=== PATIENT | female | born 1965 | race Caucasian/White ===

== ENCOUNTER 2017-07-12 18:36 | Inpatient (IN) | payer MEDICARE, OTHER ==
[~2017-07-12] VITALS: Ht 154.9 cm; Wt 99.8 kg
[2017-07-12] MEDS ORDERED: HYDR200T PO (18:53)
[2017-07-12] MEDS ORDERED: BUDE10.22 IH (18:53)
[2017-07-12] MEDS ORDERED: DOCU-25 PO (18:53)
[2017-07-12] MEDS ORDERED: LAMO25TA PO (18:53)
[2017-07-12] MEDS ORDERED: FLUT1BLS IH (18:53)
[2017-07-12] MEDS ORDERED: CLON2TAB4 PO (18:53)
[2017-07-12] MEDS ORDERED: GABA-534 PO ×2 (18:53)
[2017-07-12] MEDS ORDERED: LORC10TA PO (18:53)
[2017-07-12] MEDS ORDERED: TRAZ300T2 PO (18:53)
[2017-07-12] MEDS ORDERED: CHOL100044 PO (18:53)
[2017-07-12] MEDS ORDERED: QUET300T2 PO (18:53)
[2017-07-12] MEDS ORDERED: MAGNESIUM HYDROXIDE 30 ML UDC PO PRN (19:00)
[2017-07-12] MEDS ORDERED: MAG HYDROX/AL HYDROX/SIMETH 30 ML UDC PO PRN (19:00)
--- NOTE | 2017-07-12 19:00 | NUR ---
GPS/RN NOTE: ADMITTED DIRECTLY FROM [facility] ACCOMPANIED BY 2 MALE PARAMEDICS, CAME TO THE UNIT AROUND 1845. PATIENT ADMITTED ON 5150 HOLD FOR GD. PATIENT WAS PLACED COMFORTABLY IN BED, SHOWS NO S/S OF ANY DISTRESS. RESPIRATION EVEN, BREATHING PATTERN NON-LABORED, TOTAL BODY ASSESSMENT DONE, SKIN WARM DRY AND INTACT. PATIENT IS DEPRESSED, ANXIOUS, APPROPRIATE, THOUGHT PROCESS INTACT, COOPERATIVE, CALM. RESPONDS WELL TO QUESTIONS WHEN ENGAGED. PATIENT IS CALM AND OBEYS INSTRUCTIONS. PER HOLD PATIENT WAS VERY PARANOID AND DELUSIONAL, SEEING TURTLES, THINKING PEOPLE ARE AFTER HER, FOLLOWING HER, THINKS MEDS ARE POISON. SHE NON-COMPLIANT WITH MEDS. SHE IS NOT SLEEPING FOR DAYS. PEOPLE ARE GOING TO BREAK INTO HER PLACE. BELONGINGS WERE INVENTORIED AND CHECKED FOR CONTRABAND. VALUABLES PUT TO SAFE. PATIENT IS UNDER THE PSYCHIATRIC CARE OF DR. GREEN AND UNDER THE MEDICAL CARE OF JAVAN HO. PATIENT'S BED LOCKED AND PLACED ON LOWEST POSITION. MED RECON DONE, MRSA SCREEN DONE. LORNE, PATIENT'S MOTHER WAS NOTIFIED ABOUT HER ADMISSION TO THE UNIT. WILL CONTINUE TO MONITOR Q 15 MINS. TO MAINTAIN SAFETY.
[2017-07-12 20:00] VITALS: BP 132/81
[2017-07-12] MEDS: ACETAMINOPHEN 325 MG TABLET PO PRN (20:15)
--- NOTE | 2017-07-12 20:16 | NUR ---
GPS/RN NOTE: C/O HEADACHE, 3/10 ON PAIN SCALE, TYLENOL 650 MG TAB PO GIVEN.
--- NOTE | 2017-07-12 20:24 | NUR ---
GPS/RN NOTE: PAGED LISA PARHAM FOR MED RECONCILIATION
[2017-07-12] MEDS: GABAPENTIN 300 MG CAPSULE PO SCH (21:47)
[2017-07-12] MEDS: clonazePAM 0.5 MG TABLET PO PRN (21:47)
[2017-07-13 07:53] LABS: BILIRUBIN,TOTAL 0.5 mg/dL (0.2-1.0); CALCIUM, SERUM 9.1 mg/dL (8.5-10.1); CREATININE 1.1 mg/dL (0.6-1.3); POTASSIUM 3.7 mmol/L (3.5-5.1); TOTAL PROTEIN, SERUM 7.6 g/dL (6.4-8.2)
[2017-07-13 08:00] VITALS: BP 117/83
[2017-07-13] MEDS: DOCUSATE SODIUM 100 MG CAPSULE PO PRN (08:32)
[2017-07-13] MEDS: LamoTRIgine 25 MG TABLET PO SCH (08:32)
[2017-07-13] MEDS: GABAPENTIN 300 MG CAPSULE PO SCH ×2 (08:32→21:38)
[2017-07-13] MEDS: HYDROXYCHLOROQUINE 200 MG TABLET PO SCH ×2 (08:32→16:25)
[2017-07-13] MEDS: CHOLECALCIFEROL 1,000 UNIT TABLET (VIT D3) PO SCH (08:32)
[2017-07-13] MEDS: FLUTICASONE/VILANTEROL 1 EACH BLST.W.DEV IH SCH (10:55)
[2017-07-13] MEDS: ACETAMINOPHEN 325 MG TABLET PO PRN (11:14)
[2017-07-13 16:00] VITALS: BP 109/73
[2017-07-13 20:00] VITALS: BP 124/82
[2017-07-13] MEDS ORDERED: TRAZODONE 50 MG TABLET ONE (21:44)
[2017-07-13] MEDS ORDERED: QUETIAPINE FUMARATE 100 MG TABLET ONE ×2 (21:45→21:52)
[2017-07-13] MEDS: QUETIAPINE FUMARATE 100 MG TABLET PO SCH (21:52)
[2017-07-13] MEDS ORDERED: TRAZODONE 50 MG TABLET PO SCH (22:00)
[2017-07-14] MEDS: clonazePAM 0.5 MG TABLET PO PRN ×4 (00:17→23:05)
[2017-07-14 08:00] VITALS: BP 100/60
[2017-07-14] MEDS: GABAPENTIN 300 MG CAPSULE PO SCH ×2 (08:49→21:26)
[2017-07-14] MEDS: LamoTRIgine 25 MG TABLET PO SCH (08:49)
[2017-07-14] MEDS: HYDROXYCHLOROQUINE 200 MG TABLET PO SCH ×2 (08:49→16:58)
[2017-07-14] MEDS: CHOLECALCIFEROL 1,000 UNIT TABLET (VIT D3) PO SCH (08:50)
[2017-07-14] MEDS: FLUTICASONE/VILANTEROL 1 EACH BLST.W.DEV IH SCH (08:54)
[2017-07-14] MEDS: QUETIAPINE FUMARATE 100 MG TABLET PO SCH ×2 (08:54→16:59)
[2017-07-14 16:17] VITALS: BP 118/80
--- NOTE | 2017-07-14 18:02 | NUR ---
GPS RN NOTES/ ADMINISTERED KLONOPIN 0.5 MG PO PRN FOR ANXIETY, PARANOIA, PER PATIENT REQUEST, V/S TAKEN BP-118/80, P-84, CONTINUED MONITORING.
[2017-07-14 20:32] VITALS: BP 122/82
[2017-07-14] MEDS: TRAZODONE 50 MG TABLET PO SCH (21:26)
--- NOTE | 2017-07-14 23:05 | NUR ---
GPS/RN NOTE: PATIENT UNABLE TO SLEEP, KLONOPIN 0.5 MG TAB PO GIVEN.
[2017-07-15 08:00] VITALS: BP 100/65
[2017-07-15] MEDS: GABAPENTIN 300 MG CAPSULE PO SCH ×2 (08:40→21:24)
[2017-07-15] MEDS: LamoTRIgine 25 MG TABLET PO SCH (08:40)
[2017-07-15] MEDS: HYDROXYCHLOROQUINE 200 MG TABLET PO SCH ×2 (08:41→16:39)
[2017-07-15] MEDS: CHOLECALCIFEROL 1,000 UNIT TABLET (VIT D3) PO SCH (08:41)
[2017-07-15] MEDS: QUETIAPINE FUMARATE 100 MG TABLET PO SCH ×2 (08:41→16:39)
[2017-07-15] MEDS: FLUTICASONE/VILANTEROL 1 EACH BLST.W.DEV IH SCH (08:42)
[2017-07-15] MEDS: clonazePAM 0.5 MG TABLET PO PRN ×2 (12:59→20:09)
--- NOTE | 2017-07-15 13:02 | NUR ---
AUTO DEALER-NOTES PATIENT REQUESTING FOR KLONOPIN STATED" I NEED FOR MY ANXIETY". KLONOPIN 0.5MG P.O GIVEN PRN ORDER. WILL CONT. MONITORING FOR SAFETY AND BEHAVIOR.
--- NOTE | 2017-07-15 14:00 | NUR ---
CERTIFIED MASSAGE THERAPIST-NOTES PATIENT WATCHING TV IN THE DAY ROOM,CALM,NO ACUTE DISTRESS NOTED.
--- NOTE | 2017-07-15 15:07 | NUR ---
Initial discharge plan: Pt. lives alone at [address] [place] [id number] and wants to return home as soon as possible. SW will follow up with MD and will help form safe and proper discharge.
[2017-07-15 16:00] VITALS: BP 114/69
--- NOTE | 2017-07-15 19:30 | NUR ---
GPS RN NOTE, RECEIVED PATIENT AWAKE AND IN BED, NO S/S OR COMPLAINTS OF PAIN AT THIS TIME. PATIENT IS DISPLAYING NO S/S OF APPARENT DISTRESS AT THIS TIME. PATIENT BREATHING IS UNLABORED WITH EQUAL RISE AND FALL OF THE CHEST. PATIENT IS ALERT AND ORIENTED X 3 ON ROOM AIR WITH A SPO2 98%. PATIENT COMPLAINT WITH MEDICATION, ANXIOUS, COOPERATIVE, HYPERVERBAL, AND NEEDS REORIENTATION. PATIENT DENIES SUICIDE AND HOMICIDAL IDEATIONS AT THIS TIME. PATIENT ASSISTED WITH TURNING AND REPOSITIONING Q2HR AND PRN FOR COMFORT AND CIRCULATION. PATIENT HAS NO NEEDS AT THIS TIME. PATIENT EDUCATED ON THE USE OF THE CALL MALLORY. PATIENT BED SIDE RAILS UP X2 FOR SAFETY, BED IS LOCKED AND LOW WILL CONTINUE TO MONITOR AND MAINTAIN SAFETY.
--- NOTE | 2017-07-15 20:09 | NUR ---
GPS RN NOTE, PATIENT HAS A COMPLAINT OF FEELING ANXIOUS AND WOULD LIKE MEDICATION TO HELP CALM HER DOWN. PATIENT VITAL SIGNS ARE STABLE. GAVE KLONOPIN 0.5MG PO Q4HR PRN ORDERED. WILL REASSESS FOR ANXIETY AND I WILL CONTINUE TO MONITOR THIS PATIENT.
[2017-07-15 21:03] VITALS: BP 118/82
[2017-07-15] MEDS: TRAZODONE 50 MG TABLET PO SCH (21:24)
[2017-07-15] MEDS: TEMAZEPAM 7.5 MG CAPSULE PO PRN (22:36)
--- NOTE | 2017-07-15 22:36 | NUR ---
GPS RN NOTE, PATIENT HAS A COMPLAINT OF NOT BEING ABLE TO SLEEP AND WOULD LIKE A SLEEPING AID AT THIS TIME. PATIENT VITAL SIGNS ARE STABLE. GAVE RESTORIL 7.5 MG PO HS ORDERED. WILL REASSESS FOR INSOMNIA AND I WILL CONTINUE TO MONITOR THIS PATIENT.
[2017-07-16 08:00] VITALS: BP 109/75
[2017-07-16] MEDS: LamoTRIgine 25 MG TABLET PO SCH (09:14)
[2017-07-16] MEDS: HYDROXYCHLOROQUINE 200 MG TABLET PO SCH ×2 (09:14→16:49)
[2017-07-16] MEDS: GABAPENTIN 300 MG CAPSULE PO SCH ×2 (09:14→21:22)
[2017-07-16] MEDS: QUETIAPINE FUMARATE 100 MG TABLET PO SCH ×2 (09:14→16:49)
[2017-07-16] MEDS: CHOLECALCIFEROL 1,000 UNIT TABLET (VIT D3) PO SCH (09:14)
[2017-07-16] MEDS: FLUTICASONE/VILANTEROL 1 EACH BLST.W.DEV IH SCH (09:20)
--- NOTE | 2017-07-16 11:47 | NUR ---
LISSET spoke with pt's mother, Christiane [phone] who was concerned about the patient and how she needs help. SW suggested for the mother to call and arrange [facility] for the patient and request home health from the primary medical doctor as pt. lives in [place]. LISSET had a lengthy conversation with the patients mother and provided general information about after care and Christiane appreciated the time and the information.
[2017-07-16] MEDS: clonazePAM 0.5 MG TABLET PO PRN ×2 (12:04→17:29)
--- NOTE | 2017-07-16 12:05 | NUR ---
GPS RN NOTES/ ADMINISTERED KLONOPIN 0.5 MG PO PRN FOR ANXIETY, PARANOIA, PER PATIENT'S REQUEST, V/S STABLE, BP-109/75, P-76, CONTINUED MONITORING.
[2017-07-16 16:00] VITALS: BP 131/88
--- NOTE | 2017-07-16 17:29 | NUR ---
gps rn notes/ administered Klonopin 0.5 mg po prn for anxiety, per patient request, v/s taken bp-131/88,p-98, continued monitoring.
[2017-07-16 20:27] VITALS: BP 100/78
[2017-07-16] MEDS: TRAZODONE 50 MG TABLET PO SCH (21:24)
--- NOTE | 2017-07-17 06:50 | NUR ---
RN GPS NOTES PATIENT RESTING HER BED, NO ACUTE DISTRESS NOTED ,NO CHANGES IN STATUS. ALL NEEDS ATTENDED ANTICIPATED , PT. COMPLY WITH DUE MEDS ,WILL ENDORSE TO NEXT SHIFT FOR CONTINUITY CARE
[2017-07-17 08:00] VITALS: BP 95/62
[2017-07-17] MEDS: HYDROXYCHLOROQUINE 200 MG TABLET PO SCH ×2 (09:01→16:42)
[2017-07-17] MEDS: LamoTRIgine 25 MG TABLET PO SCH (09:02)
[2017-07-17] MEDS: QUETIAPINE FUMARATE 100 MG TABLET PO SCH ×2 (09:02→16:42)
[2017-07-17] MEDS: CHOLECALCIFEROL 1,000 UNIT TABLET (VIT D3) PO SCH (09:03)
[2017-07-17] MEDS: GABAPENTIN 300 MG CAPSULE PO SCH ×2 (09:03→21:29)
[2017-07-17] MEDS: clonazePAM 0.5 MG TABLET PO PRN ×2 (09:04→21:29)
--- NOTE | 2017-07-17 09:04 | NUR ---
gps rn notes/ administered klonopin 0.5 mg po prn for anxiety, per patient request, v/s taken bp-100/67, p-60, continued monitoring.
[2017-07-17] MEDS: FLUTICASONE/VILANTEROL 1 EACH BLST.W.DEV IH SCH (09:08)
[2017-07-17 16:23] VITALS: BP 116/89
--- NOTE | 2017-07-17 19:30 | NUR ---
GPS RN NOTE, RECEIVED PATIENT AWAKE AND IN BED, NO S/S OR COMPLAINTS OF PAIN AT THIS TIME. PATIENT IS DISPLAYING NO S/S OF APPARENT DISTRESS AT THIS TIME. PATIENT BREATHING IS UNLABORED WITH EQUAL RISE AND FALL OF THE CHEST. PATIENT IS ALERT AND ORIENTED X 3 ON ROOM AIR WITH A SPO2 98%. PATIENT COMPLAINT WITH MEDICATION, ANXIOUS, COOPERATIVE, HYPERVERBAL AT TIMES, AND NEEDS REORIENTATION. PATIENT DENIES SUICIDE AND HOMICIDAL IDEATIONS AT THIS TIME. PATIENT ASSISTED WITH TURNING AND REPOSITIONING Q2HR AND PRN FOR COMFORT AND CIRCULATION. PATIENT HAS NO NEEDS AT THIS TIME. PATIENT EDUCATED ON THE USE OF THE CALL MALLORY. PATIENT BED SIDE RAILS UP X2 FOR SAFETY, BED IS LOCKED AND LOW WILL CONTINUE TO MONITOR AND MAINTAIN SAFETY.
[2017-07-17 20:43] VITALS: BP 110/71
[2017-07-17] MEDS: DOCUSATE SODIUM 100 MG CAPSULE PO PRN (21:29)
[2017-07-17] MEDS: TRAZODONE 50 MG TABLET PO SCH (21:29)
--- NOTE | 2017-07-17 21:30 | NUR ---
GPS RN NOTE, PATIENT HAS A COMPLAINT OF FEELING CONSTIPATED AND WOULD LIKE MEDICATION TO HELP HER HAVE A BM. PATIENT VITAL SIGNS ARE STABLE. GAVE COLACE 300 MG PO HS PRN ORDERED. WILL REASSESS FOR RELIEF OF CONSTIPATION AND I WILL CONTINUE TO MONITOR THIS PATIENT.
[2017-07-18 08:00] VITALS: BP 100/62
[2017-07-18] MEDS: GABAPENTIN 300 MG CAPSULE PO SCH ×2 (08:18→21:54)
[2017-07-18] MEDS: HYDROXYCHLOROQUINE 200 MG TABLET PO SCH ×2 (08:18→16:38)
[2017-07-18] MEDS: LamoTRIgine 25 MG TABLET PO SCH (08:18)
[2017-07-18] MEDS: QUETIAPINE FUMARATE 100 MG TABLET PO SCH ×2 (08:18→16:38)
[2017-07-18] MEDS: CHOLECALCIFEROL 1,000 UNIT TABLET (VIT D3) PO SCH (08:18)
[2017-07-18] MEDS: FLUTICASONE/VILANTEROL 1 EACH BLST.W.DEV IH SCH (09:12)
[2017-07-18] MEDS: clonazePAM 0.5 MG TABLET PO PRN ×2 (11:52→20:59)
--- NOTE | 2017-07-18 12:00 | NUR ---
PARK WORKER-NOTES PATIENT REQUESTING FOR KLONOPIN FOR HER ANXIETY. KLONOPIN 0.5MG P.O GIVEN PRN ORDER. WILL CONT. MONITORING.
--- NOTE | 2017-07-18 13:00 | NUR ---
HEAD BUTLER-NOTES PATIENT IN THE DAY ROOM CALM WATCHING TV.
[2017-07-18 16:00] VITALS: BP 136/93
--- NOTE | 2017-07-18 16:00 | NUR ---
Discharge note: will discharge back home [address] [facility] [address] [facility] [address] via [facility] transportation ([employer]) at 11:00AM. MotherChristiane [phone] is notified. Pt. will follow up with Procedure Rn Dr. Cooper [address] [place] [phone] Ames [address] [place] [phone] on saturday, 07/22 at 4PM to discuss substance abuse. LISSET faxed clinicals for MD to continue the care. SW will sign discharge paperwork and instructions will be provided to the patient prior to discharge.
[2017-07-18 20:00] VITALS: BP 98/65
[2017-07-18] MEDS: TRAZODONE 50 MG TABLET PO SCH (21:54)
[2017-07-18] MEDS: TEMAZEPAM 7.5 MG CAPSULE PO PRN (21:55)
[2017-07-19 08:00] VITALS: BP 113/63
[2017-07-19] MEDS: LamoTRIgine 25 MG TABLET PO SCH (08:49)
[2017-07-19] MEDS: HYDROXYCHLOROQUINE 200 MG TABLET PO SCH (08:49)
[2017-07-19] MEDS: QUETIAPINE FUMARATE 100 MG TABLET PO SCH (08:49)
[2017-07-19] MEDS: GABAPENTIN 300 MG CAPSULE PO SCH (08:49)
[2017-07-19] MEDS: CHOLECALCIFEROL 1,000 UNIT TABLET (VIT D3) PO SCH (08:49)
[2017-07-19] MEDS: FLUTICASONE/VILANTEROL 1 EACH BLST.W.DEV IH SCH (09:30)
--- NOTE | 2017-07-19 12:28 | NUR ---
GIFT BASKET PACKER-NOTES PATIENT WAS DISCHARGE TO HOME IN [facility]. DR. GREEN AND DR. CURTIS AWARE AND AGREES OF PATIENT DISCHARGE. PATIENT DID NOT VERBALIZED SI/HI,DENIES VISUAL/AUDITORY HALLUCINATION AT THE TIME OF DISCHARGE. ALL DISCHARGE MEDICATIONS WAS REVIEWED WITH THE PATIENT WITH UNDERSTANDING. RX WAS GIVEN TO THE PATIENT. PER SW NOTES PT. MOTHER AWARE OF PATIENT DISCHARGE. PATIENT LEFT THE UNIT AMBULATORY IN STABLE CONDITION WITH ALL HER BELONGINGS INCLUDING 2 CELLPHONES AND OWN MEDICATIONS.SHE WAS MOTION PICTURE CAMERA LENS TECHNICIAN BY JUSTINO ([employer] TECHNICAL SALES SUPPORT SPECIALIST) VIA VAN. SHREDDED FILLER CUTTER OPERATOR ASSISTED PATIENT IN THE LOBBY FOR SAFETY.
== END 2017-07-19 12:30 | disposition home or self-care (01) | DRG 885 ==
LOC: GPS 18:36
PROVIDERS: ADMIT Psychiatry & Neurology Psychiatry; ATTEND Psychiatry & Neurology Psychiatry
DX: F20.0 Paranoid schizophrenia (principal); E43 Unspecified severe protein-calorie malnutrition; M32.9 Systemic lupus erythematosus, unspecified; Z68.41 Body mass index [BMI] 40.0-44.9, adult; E66.01 Morbid (severe) obesity due to excess calories; G62.9 Polyneuropathy, unspecified; F19.10 Other psychoactive substance abuse, uncomplicated; J44.9 Chronic obstructive pulmonary disease, unspecified; F41.9 Anxiety disorder, unspecified; F32.9 Major depressive disorder, single episode, unspecified; K59.09 Other constipation; Z91.19 Patient's noncompliance with other medical treatment and regimen; M06.9 Rheumatoid arthritis, unspecified
CPT/HCPCS: 36415; 80053-TC; 80061-TC; 87081-TC